=== PATIENT | male | born 1990 | race Two or more races ===

== ENCOUNTER 2018-11-07 07:03 | Emergency (ER) | payer OTHER ==
[~2018-11-07] VITALS: Ht 177.8 cm; Wt 75.0 kg
[2018-11-07] MEDS ORDERED: OXYcodone/APAP 5/325MG TABLET PO ONE (07:30)
[2018-11-07] MEDS ORDERED: IBUPROFEN 200 MG TABLET PO ONE (07:30)
--- NOTE | 2018-11-07 07:30 | NUR ---
PT TO XR
[2018-11-07] MEDS ORDERED: IBUPROFEN 200 MG TABLET ONE (07:33)
[2018-11-07] MEDS ORDERED: OXYcodone/APAP 5/325MG TABLET ONE (07:33)
--- NOTE | 2018-11-07 07:48 | NUR ---
PT RETURNED FROM XR
[2018-11-07 08:06] LABS: MEAN CORPUSCULAR HEMOGLOBIN 31.5 pg (27.5-34.5); MEAN CORPUSCULAR HGB CONC 34.5 g/dL (33.2-36.2); MEAN CORPUSCULAR VOLUME 91.2 fL (81-97); MEAN PLATELET VOLUME 7.7 fL (7.4-10.4); PLATELET COUNT 409 x10^3/uL (130-400); RED BLOOD COUNT 4.95 x10^6/uL (4.38-5.82); RED CELL DISTRIBUTION WIDTH 14.2 % (9.4-14.8)
[2018-11-07 09:09] LABS: BASOPHILS # (AUTO) 0.02 x10^3/uL (0-0.1); BASOPHILS % (AUTO) 0 % (0-1); EOSINOPHILS # (AUTO) 0.32 x10^3/uL (0-0.4); EOSINOPHILS % (AUTO) 2 % (1-7); LYMPHOCYTES # (AUTO) 1.44 x10^3/uL (1-3.4); LYMPHOCYTES % (AUTO) 9 % (22-44); MD SCAN; MONOCYTES # (AUTO) 1.19 x10^3/uL (0.2-0.8); MONOCYTES % (AUTO) 7 % (2-9); NEUTROPHILS # (AUTO) 13.64 x10^3/uL (1.8-6.8); NEUTROPHILS % (AUTO) 82 % (42-75)
[2018-11-07 09:12] LABS: HCT (SEDRATE) 45.1 % (39.2-51.8)
--- NOTE | 2018-11-07 09:55 | NUR ---
report given to Sona
--- NOTE | 2018-11-07 09:55 | NUR ---
Report from Verna Morris RN.
[2018-11-07 10:06] VITALS: BP 158/114
--- NOTE | 2018-11-07 10:06 | NUR ---
Patient reports improved pain. MD and PA at bedside discussing plan of care.
--- NOTE | 2018-11-07 11:07 | NUR ---
Patient/Caregiver given discharge instructions and they have confirmed that they understand the instructions. Patient ambulatory with steady gait with crutches.
== END 2018-11-07 11:08 | disposition home or self-care (01) ==
LOC: ED 11:02
DX: M25.561 Pain in right knee (principal); I10 Essential (primary) hypertension; M10.071 Idiopathic gout, right ankle and foot
CPT/HCPCS: 36415; 80047; 84550; 85025; 85651; 86140; 99284

== ENCOUNTER 2018-12-26 03:35 | Emergency (ER) | payer SELFPAY ==
[~2018-12-26] VITALS: Ht 165.1 cm; Wt 79.2 kg
[2018-12-26] MEDS ORDERED: DIPHENHYDRAMINE 25 MG CAPSULE PO ONE (04:00)
[2018-12-26] MEDS ORDERED: LORazepam 1MG TABLET PO ONE (04:00)
[2018-12-26] MEDS ORDERED: DIPHENHYDRAMINE 25 MG CAPSULE ONE (04:02)
[2018-12-26] MEDS ORDERED: LORazepam 1MG TABLET ONE (04:03)
[2018-12-26 04:20] VITALS: BP 155/101
== END 2018-12-26 04:23 | disposition home or self-care (01) ==
LOC: ED 04:20
DX: G47.00 Insomnia, unspecified (principal); F10.120 Alcohol abuse with intoxication, uncomplicated; I10 Essential (primary) hypertension
CPT/HCPCS: 99283; Q0163

== ENCOUNTER 2019-05-21 12:15 | Emergency (ER) | payer SELFPAY ==
[~2019-05-21] VITALS: Ht 162.6 cm; Wt 72.3 kg
[2019-05-21 12:18] VITALS: BP 175/111
== END 2019-05-21 13:39 | disposition home or self-care (01) ==
LOC: ED 13:20
DX: M79.671 Pain in right foot (principal); I10 Essential (primary) hypertension
CPT/HCPCS: 36415; 73630; 84550; 96372; 99284; J1885

== ENCOUNTER 2020-07-03 01:44 | Emergency (ER) | payer OTHER ==
[~2020-07-03] VITALS: Ht 172.7 cm; Wt 79.0 kg
[2020-07-03] MEDS ORDERED: LORazepam 1MG TABLET ONE (02:11)
[2020-07-03] MEDS ORDERED: ONDANSETRON ODT 4 MG ONE (02:11)
--- NOTE | 2020-07-03 02:23 | NUR ---
PT HERE FOR INSOMNIA AND ANXIETY. PT MEDICATED AND WAITING FOR LABS. CALL LIGHT IN REACH
[2020-07-03] MEDS ORDERED: LORazepam 1MG TABLET PO ONE (02:30)
[2020-07-03] MEDS ORDERED: ONDANSETRON ODT 4 MG PO ONE (02:30)
[2020-07-03 02:44] LABS: BASOPHILS # (AUTO) 0.05 x10^3/uL (0-0.1); BASOPHILS % (AUTO) 1 % (0-1); EOSINOPHILS # (AUTO) 0.27 x10^3/uL (0-0.4); EOSINOPHILS % (AUTO) 3 % (1-7); LYMPHOCYTES # (AUTO) 3.01 x10^3/uL (1-3.4); LYMPHOCYTES % (AUTO) 35 % (22-44); MD NO; MEAN CORPUSCULAR HEMOGLOBIN 30.8 pg (27.5-34.5); MEAN CORPUSCULAR HGB CONC 33.1 g/dL (33.2-36.2); MEAN PLATELET VOLUME 6.7 fL (7.4-10.4); MONOCYTES # (AUTO) 0.64 x10^3/uL (0.2-0.8); MONOCYTES % (AUTO) 8 % (2-9); NEUTROPHILS # (AUTO) 4.64 x10^3/uL (1.8-6.8); NEUTROPHILS % (AUTO) 54 % (42-75); PLATELET COUNT 372 x10^3/uL (130-400); RED BLOOD COUNT 5.52 x10^6/uL (4.38-5.82); RED CELL DISTRIBUTION WIDTH 14.4 % (9.4-14.8)
[2020-07-03 02:56] LABS: ALANINE AMINOTRANSFERASE 52 U/L (12-78); ALBUMIN 2.4 g/dL (3.4-5.0); ANION GAP 14 mmol/L (5-15); CALCIUM 7.3 mg/dL (8.5-10.1); CHLORIDE 96 mmol/L (98-107); CREATININE 1.35 mg/dL (0.7-1.3)
[2020-07-03 02:58] LABS: ALKALINE PHOSPHATASE 90 U/L (45-117)
[2020-07-03 03:15] VITALS: BP 121/89
[2020-07-03] MEDS ORDERED: POTASSIUM CHLORIDE 20 MEQ TAB.ER.PRT ONE (03:26)
[2020-07-03] MEDS ORDERED: POTASSIUM CHLORIDE 20 MEQ TAB.ER.PRT PO ONE (03:30)
--- NOTE | 2020-07-03 04:02 | NUR ---
Patient given discharge instructions and they have confirmed that they understand the instructions. Patient ambulatory with steady gait.
== END 2020-07-03 04:05 | disposition home or self-care (01) ==
LOC: ED 03:41
DX: G47.00 Insomnia, unspecified (principal); R10.13 Epigastric pain; R10.12 Left upper quadrant pain; F41.1 Generalized anxiety disorder; E87.6 Hypokalemia; I10 Essential (primary) hypertension; I51.7 Cardiomegaly
CPT/HCPCS: 36415; 80053; 83690; 85025; 93005; 99284; Q0162